=== PATIENT | male | born 1965 | race Two or more races ===

== ENCOUNTER 2023-03-24 12:49 | Inpatient (IN) | payer OTHER, MEDICAID ==
[~2023-03-24] VITALS: Ht 172.7 cm; Wt 119.0 kg
[2023-03-24] MEDS ORDERED: MECLIZINE HCL 25 MG TAB PO ONE (14:00)
[2023-03-24 14:12] LABS: Urine Bacteria FEW /hpf (None Seen); Urine Blood Negative /uL (Negative); Urine Mucus FEW (None Seen); Urine Specific Gravity 1.027 (1.001-1.035); Urine WBC 2 /hpf (0 - 3)
[2023-03-24 14:24] LABS: Basophils # (auto) 0 10 ^3/uL (0-0.2); Basophils % (auto) 0.1 % (0.0-2.0); Eosinophils # (auto) 0 10 ^3/uL (0-0.8); Eosinophils % (auto) 0.1 % (0.0-7.0); Hematocrit 50.8 % (41.0-53.0); Hemoglobin 17.3 g/dL (13.5-17.5); Lymphocytes # (auto) 1.3 10 ^3/uL (0.4-5.4); Lymphocytes % (auto) 13.6 % (10.0-50.0); Mean Corpuscular Hemoglobin 31.3 pg (28.0-32.0); Mean Corpuscular Volume 92.1 fL (80.0-100.0); Monocytes % (auto) 9.8 % (0.0-12.0); Neutrophils # (auto) 7.6 10 ^3/uL (1.6-8.6); Neutrophils % (auto) 76.4 % (37.0-80.0); Nucleated Red Blood Cells % 0.1 %; Red Blood Cells 5.51 10^6/uL (4.5-5.90); Red Cell Distribution Width 13.5 % (11.8-14.3); White Blood Cell 9.9 10^3/uL (4.4-10.8)
[2023-03-24 14:45] LABS: Albumin 4.1 g/dL (3.4-5.0); Calcium 9.1 mg/dL (8.5-10.1); Potassium 4.2 mmol/L (3.5-5.1)
[2023-03-24 14:48] LABS: BUN/Creatinine Ratio 18.2 (10.0-20.0); Bilirubin, Total 1.1 mg/dL (0.2-1.0); Total Protein 7.7 g/dL (6.4-8.2)
[2023-03-24] MEDS ORDERED: NITROGLYCERIN 0.4 MG SL TAB SL PRN (16:30)
[2023-03-24] MEDS ORDERED: MORPHINE SULFATE INJ 2 MG/ml SYRG IV PRN (16:30)
[2023-03-24] MEDS ORDERED: ASPirin 325 MG TAB PO ONE (17:00)
[2023-03-24] MEDS ORDERED: ASPirin-EC 325mg tab PO ONE (17:00)
[2023-03-24] MEDS ORDERED: MECLIZINE HCL 25 MG TAB PO PRN (17:00)
[2023-03-24] MEDS ORDERED: ONDANSETRON HCL 4 MG/2 ML VIAL IV PRN (17:00)
[2023-03-24 17:41] LABS: Alcohol, Urine < 3.0 mg/dL (0-10); Amphetamine Screen, Urine NEGATIVE (NEGATIVE); Barbiturate Scree,Urine NEGATIVE (NEGATIVE); Benzodiazephine Screen, Urine NEGATIVE (NEGATIVE); Cannabinoid Screen, Urine NEGATIVE (NEGATIVE); Cocaine Screen, Urine NEGATIVE (NEGATIVE); Opiate Scree,Urine NEGATIVE (NEGATIVE); Phencyclidine Screen, Urine NEGATIVE (NEGATIVE)
[2023-03-24 17:56] LABS: INR 1.1 (0.9-1.15); Partial Thromboplastin Time 26.2 SEC (24.5-34.5)
[2023-03-24] MEDS ORDERED: ATORVASTATIN 20 MG TAB PO SCH (22:00)
[2023-03-25 05:14] LABS: Basophils # (auto) 0 10 ^3/uL (0-0.2); Basophils % (auto) 0.4 % (0.0-2.0); Eosinophils # (auto) 0 10 ^3/uL (0-0.8); Eosinophils % (auto) 0.4 % (0.0-7.0); Hematocrit 45.7 % (41.0-53.0); Lymphocytes # (auto) 1.7 10 ^3/uL (0.4-5.4); Lymphocytes % (auto) 22.2 % (10.0-50.0); Mean Corpuscular Hemoglobin 32.2 pg (28.0-32.0); Mean Corpuscular Volume 91.9 fL (80.0-100.0); Monocytes # (auto) 0.7 10 ^3/uL (0-1.3); Monocytes % (auto) 9.4 % (0.0-12.0); Neutrophils # (auto) 5.3 10 ^3/uL (1.6-8.6); Neutrophils % (auto) 67.6 % (37.0-80.0); Nucleated Red Blood Cells % 0.1 %; Red Blood Cells 4.98 10^6/uL (4.5-5.90); Red Cell Distribution Width 13.2 % (11.8-14.3); White Blood Cell 7.8 10^3/uL (4.4-10.8)
[2023-03-25 05:32] LABS: Albumin 3.5 g/dL (3.4-5.0); Potassium 3.4 mmol/L (3.5-5.1)
[2023-03-25 05:39] LABS: BUN/Creatinine Ratio 21.9 (10.0-20.0); Bilirubin, Total 1.1 mg/dL (0.2-1.0); Calcium 8.7 mg/dL (8.5-10.1)
[2023-03-25] MEDS ORDERED: SODIUM CHLORIDE 0.9% 1,000 ML IV ONE ×2 (08:45→09:00)
[2023-03-25] MEDS ORDERED: IOHEXOL 350 MG/ML 100ML IJ ONE (08:47)
[2023-03-25] MEDS ORDERED: CLOPIDOGREL BISULFATE 75 MG TAB PO SCH (10:00)
[2023-03-25] MEDS: ATORVASTATIN 20 MG TAB PO SCH ×2 (10:00→23:07)
[2023-03-25] MEDS: FAMOTIDINE 20 MG TAB PO SCH (10:09)
[2023-03-25] MEDS: ASPirin-EC 81 mg tab PO SCH (10:09)
[2023-03-25] MEDS: CLOPIDOGREL BISULFATE 75 MG TAB PO SCH (10:11)
[2023-03-26 00:24] VITALS: BP 136/76
[2023-03-26] MEDS: HYDROcodone-ACET 5/325MG TAB PO PRN (05:51)
[2023-03-26 09:00] VITALS: BP 103/62
[2023-03-26] MEDS ORDERED: LORazepam 2MG/ML-1ML VIAL IV PRN (09:00)
[2023-03-26] MEDS: ASPirin-EC 81 mg tab PO SCH (10:36)
[2023-03-26] MEDS: CLOPIDOGREL BISULFATE 75 MG TAB PO SCH (10:36)
[2023-03-26] MEDS: FAMOTIDINE 20 MG TAB PO SCH (10:36)
[2023-03-26 17:00] VITALS: BP 93/57
[2023-03-26 20:00] VITALS: BP 121/69
[2023-03-26] MEDS: ATORVASTATIN 20 MG TAB PO SCH (21:17)
[2023-03-26 22:00] VITALS: BP 121/69
[2023-03-27 05:00] VITALS: BP 109/70
[2023-03-27 09:00] VITALS: BP 123/60
[2023-03-27] MEDS: ASPirin-EC 81 mg tab PO SCH (09:01)
[2023-03-27] MEDS: CLOPIDOGREL BISULFATE 75 MG TAB PO SCH (09:01)
[2023-03-27] MEDS: HYDROcodone-ACET 5/325MG TAB PO PRN (09:02)
[2023-03-27] MEDS: FAMOTIDINE 20 MG TAB PO SCH (09:02)
[2023-03-27] MEDS ORDERED: ATOR20TA PO (09:43)
[2023-03-27] MEDS ORDERED: ASPI-498 PO (09:43)
[2023-03-27] MEDS ORDERED: CLOP75TA28 PO (09:43)
[2023-03-27] MEDS ORDERED: MECL25CH85 PO (09:47)
[2023-03-27 13:00] VITALS: BP 104/56
== END 2023-03-27 13:30 | disposition home or self-care (01) | DRG 66 ==
LOC: ER 12:49 → TELE 16:49 → TELE-CENTR 03-25 22:33
PROVIDERS: ADMIT Nurse Practitioner Family; ATTEND Family Medicine
DX: I63.542 Cerebral infarction due to unspecified occlusion or stenosis of left cerebellar artery (principal); H81.10 Benign paroxysmal vertigo, unspecified ear; Z79.02 Long term (current) use of antithrombotics/antiplatelets; Z79.82 Long term (current) use of aspirin; Z79.899 Other long term (current) drug therapy; Z83.3 Family history of diabetes mellitus
CPT/HCPCS: 36415; 70450; 70496; 70551; 80053; 80061; 80307; 81001; 82962; 83036; 84443; 84484; 85025; 85610; 85730; 87081; 93306; 93886; 97163; 99291; G0378

== ENCOUNTER → 2024-10-13 | Day surgery (SDC) | payer OTHER ==
[~2024-10-13] VITALS: Ht 175.3 cm; Wt 98.4 kg
[~2024-10-13] MED LIST: LIDOCAINE 1% INJ PF 5ML AMP ONE; PROPOFOL 10 MG/ML 20 ML IV ONE
[2024-10-13 07:50] VITALS: TEMP 97.7
[2024-10-13 08:59] VITALS: PULSE 64; RESP 15; O2SAT 93
--- NOTE | 2024-10-13 08:59 | DVHHP2 ---
GI H&P Pre-Op Assessment Date: 10/13/24 Chief complaint: colon cancer screening, blood in stool HPI: per clinic note Past medical history: per clinic note Past surgical history: per clinic note Family history: per clinic note Physical exam: General: NAD, AAOX3 HEENT: PERRL, no scleral icterus, normal hearing, gums without lesions or bleeding, oropharynx clear without erythema or exudate. Neck: Supple without enlargement of the thyroid, or lymphadenopathy. Chest: Normal size and shape, no tenderness, lung carmichael clear to auscultation and percussion, nonlabored breathing. Heart: RRR, no murmur Abdomen: non-distended, no tenderness to palpation, +BS, no hepatosplenomegaly Extremities: no edema Neurological: CN II-XII intact, sensation intact in all extremities, 5+ strength in all extremities Skin: No rashes, No jaundice Assessment: - colon cancer screening - blood in stool Plan: - Colonoscopy - Risks (bleeding, infection, perforation, reaction to sedation medications and cardiopulmonary arrest) and benefit of the procedure were explained to patient. Patient agrees to undergo the procedure. DAIANA WOMACK MD Oct 13, 2024 08:59
--- NOTE | 2024-10-13 09:02 | DVHDS2 ---
Physician Discharge Progress N Final Diagnosis: colon polyps, diverticulosis, internal hemorrhoids Operations or Procedures: Operations or Procedures colonoscopy with snare and biopsy polypectomy Condition on Discharge: Good Disposition: Home Discharge Instructions: Diet: Regular Activity: No Restrictions, As Tolerated Medications: resume previous home medications Follow Up Care: Discharge Statement: "Patient was advised to return to the ER or call 911 if any headaches, dizziness, shortness of breath, chest pain, abdominal pain, bleeding, fevers, or worsening of medical condition. Patient was counseled about treatment plan, medications, possible side effects, patientverbalized understanding. All questions were answered to the best of my ability. This discharge took greater then 30 minutes in planning, reviewing documentation, counseling the patient, and discussing with other team members." DAIANA WOMACK MD Oct 13, 2024 09:02
--- NOTE | 2024-10-13 09:02 | DVHOP2 ---
Operative Report DATE OF OPERATION: 10/13/24 PROCEDURE: Colonoscopy. PREOPERATIVE INDICATION: The patient is a 59 -year-old male undergoing colonoscopy for colon cancer screening and blood in stool. POSTOPERATIVE DIAGNOSES: 1. 4 mm transverse colon polyp was removed with hot snare and retrieved. 2. 2 mm transverse colon polyp was removed with biopsy forceps. 3. Few small diverticulosis in left colon. 4. Internal hemorrhoids. PROCEDURE PERFORMED BY: Kelvin Mccoy M.D. SCOPE: Olympus videocolonoscope. ASA CLASS: 3 PREOPERATIVE MEDICATIONS: MAC with [employer] PROCEDURE IN DETAIL: After obtaining an informed consent, the patient was placed on left lateral decubitus position. He was then sedated with the above medications. A rectal examination was performed that was normal. The colonoscope was then passed through the anus into the rectosigmoid and through the descending, transverse, and ascending colon up to the cecum with visualization of the appendiceal orifice, base of the cecum and the ileocecal valve. A 4 mm transverse colon polyp was removed with hot snare and retrieved. A 2 mm transverse colon polyp was removed with biopsy forceps. There was a few small diverticulosis in left colon. There were internal hemorrhoids. The colonoscope was then withdrawn. The patient tolerated the procedure well without difficulty. WITHDRAWAL TIME: 6 minutes QUALITY OF THE PREP: Ajo Bowel Prep score: 7 COMPLICATIONS : None SPECIMENS: Colon polyps DISPOSITION: D/C to home PLAN: 1. Repeat colonoscopy base on biopsy result KELVIN MCCOY MD Oct 13, 2024 09:02
[2024-10-13 09:05] VITALS: O2SAT 93
[2024-10-13 09:20] VITALS: BP 122/78; PULSE 70; RESP 11; O2SAT 94
== END | disposition home or self-care (01) ==
LOC: GI 07:01
PROVIDERS: ATTEND Internal Medicine Gastroenterology
DX: K92.1 Melena (principal); K57.30 Diverticulosis of large intestine without perforation or abscess without bleeding; K64.8 Other hemorrhoids; D12.3 Benign neoplasm of transverse colon; E66.01 Morbid (severe) obesity due to excess calories; Z68.32 Body mass index [BMI] 32.0-32.9, adult; Z98.890 Other specified postprocedural states
CPT/HCPCS: 45380; 45385; 88305; J2704; J7030